=== PATIENT | female | born 1945 | race Caucasian/White ===

== ENCOUNTER 2016-05-25 14:23 | Inpatient (IN) | payer BC ==
[2016-05-25] VITALS (15 sets, daily range): BP systolic 98–158; RESP 14–20; TEMP 98.9–99.7; Ht 157.5 cm; Wt 41.5 kg
[~2016-05-25] VITALS: Ht 157.5 cm; Wt 41.5 kg
[2016-05-25] MEDS ORDERED: SUCCINYLCHOLINE 20 MG/ML VL ONE (14:26)
[2016-05-25] MEDS ORDERED: ETOMIDATE 2 MG/ML VIAL IV ONE (14:26)
[2016-05-25] MEDS ORDERED: FENTANYL 250 MCG/5 ML AMP ONE (14:41)
[2016-05-25] MEDS ORDERED: SODIUM CHLORIDE 0.9% 1,000 ML ONE ×2 (14:41→15:16)
[2016-05-25] MEDS ORDERED: FENTANYL DRIP 50 ML IV ONE (15:16)
[2016-05-25] MEDS: DUONEB INH SCH ×3 (15:55→23:00)
[2016-05-25] MEDS ORDERED: MAG HYDROX 30 ML UDC PO PRN (15:55)
[2016-05-25] MEDS ORDERED: ONDANSETRON 4 MG VIAL IV PRN (15:55)
[2016-05-25] MEDS ORDERED: SODIUM CHLORIDE 0.9% 1,000 ML IV SCH (15:55)
[2016-05-25] MEDS ORDERED: GLUCAGON 1 MG VIAL IM PRN (15:55)
[2016-05-25] MEDS ORDERED: ALU/MAG/SIM 30 ML UDC PO PRN (15:55)
[2016-05-25] MEDS ORDERED: DEXTROSE 50% SYRINGE 50 ML IV PRN (15:55)
[2016-05-25] MEDS: METHYLPRED SOD SUCC 125 MG/2 ML VIAL IV SCH (18:35)
[2016-05-25] MEDS: CEFTRIAXONE 1 GM in SODIUM CHLORIDE 0.9% 50 ML IV SCH (18:36)
[2016-05-25] MEDS: NEB-BUDESONIDE 0.5 MG INH SCH (19:23)
[2016-05-25] MEDS: NEB-BROVANA 15 MCG/2 ML INH SCH (19:24)
[2016-05-25] MEDS: ENOXAPARIN 40 MG/0.4 ML SYR SUBQ SCH (19:30)
[2016-05-25] MEDS: FAMOTIDINE 20 MG INJ IV SCH (19:31)
[2016-05-25] MEDS ORDERED: Flu Vaccine Quadrivalent 60 MCG/0.5 ML IM.VACC ONE (19:40)
[2016-05-25] MEDS ORDERED: LINEZOLID INJ IV ONE (22:05)
[2016-05-25] MEDS ORDERED: LINEZOLID INJ IV SCH (22:05)
[2016-05-26] VITALS (31 sets, daily range): BP systolic 83–165; RESP 15–22; TEMP 97.2–98.5
[2016-05-26] MEDS: CHLORHEXIDINE 0.12% ORAL CARE FOR VENT PATIENTS 15 ML SWAB SCH ×2 (01:07→12:00)
[2016-05-26] MEDS: METHYLPRED SOD SUCC 125 MG/2 ML VIAL IV SCH ×2 (01:07→07:31)
[2016-05-26] MEDS: LINEZOLID 600 MG/300 ML 300 ML IV SCH ×3 (01:19→19:53)
[2016-05-26] MEDS ORDERED: POTASSIUM CHLORIDE PREMIX 50 ML IV PRN (01:25)
[2016-05-26] MEDS ORDERED: DEXTROSE 5% SALINE 0.45% 1,000 ML IV SCH (01:25)
[2016-05-26] MEDS ORDERED: DEXTROSE 5% SALINE 0.9% 1,000 ML IV SCH (01:25)
[2016-05-26] MEDS ORDERED: SODIUM CHLOR 0.9% W/KCL 20MEQ 1,000 ML IV SCH (01:25)
[2016-05-26] MEDS ORDERED: D5-1/2-NS W/KCL 20MEQ/L 1,000 ML IV SCH (01:25)
[2016-05-26] MEDS ORDERED: D5-NS W/KCL 20MEQ/L 1,000 ML IV SCH (01:25)
[2016-05-26] MEDS ORDERED: SODIUM CHLORIDE 0.45% 1,000 ML IV SCH (01:25)
[2016-05-26] MEDS ORDERED: SODIUM CHLOR 0.45% W/KCL 20MEQ 1,000 ML IV SCH (01:25)
[2016-05-26] MEDS ORDERED: SODIUM CHLORIDE 0.9% 1,000 ML IV SCH (01:25)
[2016-05-26] MEDS ORDERED: DEXTROSE 5% 1,000 ML IV SCH (01:25)
[2016-05-26] MEDS ORDERED: D5 W/KCL 20MEQ/L 1,000 ML IV SCH (01:25)
[2016-05-26] MEDS: DUONEB INH SCH ×6 (02:55→22:53)
[2016-05-26] MEDS: NEB-BROVANA 15 MCG/2 ML INH SCH ×2 (06:59→19:03)
[2016-05-26] MEDS: NEB-BUDESONIDE 0.5 MG INH SCH ×2 (06:59→19:03)
[2016-05-26] MEDS: FAMOTIDINE 20 MG INJ IV SCH ×2 (07:31→19:52)
[2016-05-26] MEDS: CEFTRIAXONE 1 GM in SODIUM CHLORIDE 0.9% 50 ML IV SCH (10:12)
[2016-05-26] MEDS: ENOXAPARIN 40 MG/0.4 ML SYR SUBQ SCH (10:13)
[2016-05-26] MEDS: MAGNESIUM SULF 1 GM/100 ML 100 ML IV SCH ×4 (11:07→14:41)
[2016-05-26] MEDS: METHYLPRED SOD SUCC 40 MG VIAL IV SCH ×2 (12:26→17:47)
[2016-05-26] MEDS ORDERED: SALINE FLUSH 10 ML FLUSH PRN (12:30)
[2016-05-26] MEDS: SALINE FLUSH 10 ML FLUSH SCH (19:53)
[2016-05-27] VITALS (25 sets, daily range): BP systolic 120–177; RESP 14–22; TEMP 97.5–98
[2016-05-27] MEDS: METHYLPRED SOD SUCC 40 MG VIAL IV SCH ×5 (01:16→23:35)
[2016-05-27] MEDS: DUONEB INH SCH ×3 (02:39→11:12)
[2016-05-27] MEDS: NEB-BUDESONIDE 0.5 MG INH SCH ×2 (06:13→18:16)
[2016-05-27] MEDS: NEB-BROVANA 15 MCG/2 ML INH SCH ×2 (06:14→18:16)
[2016-05-27] MEDS: LINEZOLID 600 MG/300 ML 300 ML IV SCH ×2 (07:42→20:08)
[2016-05-27] MEDS: SALINE FLUSH 10 ML FLUSH SCH ×2 (07:42→20:09)
[2016-05-27] MEDS: FAMOTIDINE 20 MG INJ IV SCH (07:42)
[2016-05-27] MEDS: SODIUM CHLORIDE 0.9% FLUSH BAG 500 ML IV SCH (07:44)
[2016-05-27] MEDS: CEFTRIAXONE 1 GM in SODIUM CHLORIDE 0.9% 50 ML IV SCH (09:23)
[2016-05-27] MEDS: ENOXAPARIN 40 MG/0.4 ML SYR SUBQ SCH (09:23)
[2016-05-27] MEDS: NEB-ATROVENT INH SCH ×2 (15:03→18:16)
[2016-05-27] MEDS: NEB-XOPENEX 0.63 MG/3 ML INH SCH ×2 (15:03→18:16)
[2016-05-27] MEDS: MONTELUKAST 10 MG TAB PO SCH (20:08)
[2016-05-27] MEDS: DILTIAZEM 30 MG TAB PO SCH (20:08)
[2016-05-27] MEDS: GUAIFENESIN ER 600 MG TABCR PO SCH (20:08)
[2016-05-28] VITALS (25 sets, daily range): BP systolic 123–181; RESP 12–25; TEMP 97.7–98.4
[2016-05-28] MEDS: NEB-XOPENEX 0.63 MG/3 ML INH SCH ×7 (00:14→23:42)
[2016-05-28] MEDS: SODIUM CHLORIDE 0.9% FLUSH BAG 500 ML IV SCH (05:47)
[2016-05-28] MEDS: METHYLPRED SOD SUCC 40 MG VIAL IV SCH ×2 (05:56→12:08)
[2016-05-28] MEDS: PANTOPRAZOLE 40 MG TAB PO SCH (05:56)
[2016-05-28] MEDS: NEB-BUDESONIDE 0.5 MG INH SCH ×2 (06:06→19:50)
[2016-05-28] MEDS: MDI-SPIRIVA 5 DOSES INH SCH (06:07)
[2016-05-28] MEDS: SALINE FLUSH 10 ML FLUSH SCH ×2 (08:39→19:44)
[2016-05-28] MEDS: LINEZOLID 600 MG/300 ML 300 ML IV SCH ×2 (08:39→19:44)
[2016-05-28] MEDS: GUAIFENESIN ER 600 MG TABCR PO SCH ×2 (08:40→19:45)
[2016-05-28] MEDS: ENOXAPARIN 40 MG/0.4 ML SYR SUBQ SCH (08:40)
[2016-05-28] MEDS: CHOLECALCIFEROL 1,000 UNITS TAB PO SCH (08:40)
[2016-05-28] MEDS: DILTIAZEM 30 MG TAB PO SCH (08:40)
[2016-05-28] MEDS: NEB-BROVANA 15 MCG/2 ML INH SCH ×2 (10:56→19:50)
[2016-05-28] MEDS ORDERED: Furosemide 20 MG/2 ML VIAL IV ONE (11:15)
[2016-05-28] MEDS: DILTIAZEM 60 MG TAB PO SCH (19:44)
[2016-05-28] MEDS: MONTELUKAST 10 MG TAB PO SCH (19:45)
[2016-05-28] MEDS ORDERED: LISINOPRIL 10 MG TAB PO SCH (23:10)
[2016-05-28] MEDS: CILOSTAZOL 100 MG TAB PO SCH (23:34)
[2016-05-29] VITALS (8 sets, daily range): BP systolic 112–148; RESP 14–20; TEMP 97–98
[2016-05-29] MEDS: NEB-XOPENEX 0.63 MG/3 ML INH SCH ×6 (02:25→22:34)
[2016-05-29] MEDS: NEB-BROVANA 15 MCG/2 ML INH SCH ×2 (06:10→18:31)
[2016-05-29] MEDS: NEB-BUDESONIDE 0.5 MG INH SCH ×2 (06:10→18:31)
[2016-05-29] MEDS: MDI-SPIRIVA 5 DOSES INH SCH (06:11)
[2016-05-29] MEDS: PANTOPRAZOLE 40 MG TAB PO SCH (06:21)
[2016-05-29] MEDS: CILOSTAZOL 100 MG TAB PO SCH ×2 (06:21→17:32)
[2016-05-29] MEDS: SODIUM CHLORIDE 0.9% FLUSH BAG 500 ML IV SCH (06:22)
[2016-05-29] MEDS: ENOXAPARIN 40 MG/0.4 ML SYR SUBQ SCH (08:02)
[2016-05-29] MEDS: SALINE FLUSH 10 ML FLUSH SCH ×2 (08:02→19:40)
[2016-05-29] MEDS: PREDNISONE 20 MG TAB PO SCH (08:03)
[2016-05-29] MEDS: AZITHROMYCIN 250 MG TAB PO SCH (08:03)
[2016-05-29] MEDS: DILTIAZEM 60 MG TAB PO SCH ×3 (08:03→20:59)
[2016-05-29] MEDS: GUAIFENESIN ER 600 MG TABCR PO SCH ×2 (08:03→20:59)
[2016-05-29] MEDS: CHOLECALCIFEROL 1,000 UNITS TAB PO SCH (08:07)
[2016-05-29] MEDS ORDERED: MISSING DOSE XX ONE (08:20)
[2016-05-29] MEDS: LINEZOLID 600 MG/300 ML 300 ML IV SCH ×2 (10:31→19:41)
[2016-05-29] MEDS: MONTELUKAST 10 MG TAB PO SCH (20:59)
[2016-05-29] MEDS: LISINOPRIL 5 MG TAB PO SCH (20:59)
[2016-05-30] MEDS: NEB-XOPENEX 0.63 MG/3 ML INH SCH ×6 (02:40→22:19)
[2016-05-30 03:30] VITALS: BP_SYST 142; RESP 22; TEMP 97.7
[2016-05-30] MEDS: NEB-BROVANA 15 MCG/2 ML INH SCH ×2 (06:00→17:12)
[2016-05-30] MEDS: NEB-BUDESONIDE 0.5 MG INH SCH ×2 (06:00→17:12)
[2016-05-30] MEDS: MDI-SPIRIVA 5 DOSES INH SCH (06:01)
[2016-05-30] MEDS: PANTOPRAZOLE 40 MG TAB PO SCH (06:24)
[2016-05-30] MEDS: SODIUM CHLORIDE 0.9% FLUSH BAG 500 ML IV SCH (06:24)
[2016-05-30] MEDS: CILOSTAZOL 100 MG TAB PO SCH ×2 (06:25→17:26)
[2016-05-30 07:20] VITALS: BP_SYST 140; RESP 20; TEMP 97
[2016-05-30] MEDS: SALINE FLUSH 10 ML FLUSH SCH ×2 (07:56→20:31)
[2016-05-30] MEDS: LINEZOLID 600 MG/300 ML 300 ML IV SCH (07:56)
[2016-05-30] MEDS: DILTIAZEM 60 MG TAB PO SCH ×3 (08:00→20:32)
[2016-05-30] MEDS: GUAIFENESIN ER 600 MG TABCR PO SCH ×2 (08:00→20:31)
[2016-05-30] MEDS: ENOXAPARIN 40 MG/0.4 ML SYR SUBQ SCH (08:00)
[2016-05-30] MEDS: PREDNISONE 20 MG TAB PO SCH (08:00)
[2016-05-30] MEDS: AZITHROMYCIN 250 MG TAB PO SCH (08:00)
[2016-05-30] MEDS: CHOLECALCIFEROL 1,000 UNITS TAB PO SCH (08:00)
[2016-05-30 11:11] VITALS: BP_SYST 110; RESP 18; TEMP 98.1
[2016-05-30 15:17] VITALS: BP_SYST 132; RESP 18; TEMP 97.7
[2016-05-30 20:06] VITALS: BP_SYST 130; RESP 16; TEMP 96.9
[2016-05-30] MEDS: MONTELUKAST 10 MG TAB PO SCH (20:31)
[2016-05-30] MEDS: LISINOPRIL 5 MG TAB PO SCH (20:31)
[2016-05-30] MEDS: LINEZOLID 600 MG TAB PO SCH (20:32)
[2016-05-31] VITALS (7 sets, daily range): BP systolic 108–130; RESP 16–18; TEMP 96.9–98.1
[2016-05-31] MEDS: NEB-XOPENEX 0.63 MG/3 ML INH SCH ×6 (03:25→22:34)
[2016-05-31] MEDS: SODIUM CHLORIDE 0.9% FLUSH BAG 500 ML IV SCH (06:00)
[2016-05-31] MEDS: NEB-BUDESONIDE 0.5 MG INH SCH ×2 (06:28→18:44)
[2016-05-31] MEDS: MDI-SPIRIVA 5 DOSES INH SCH (06:29)
[2016-05-31] MEDS: NEB-BROVANA 15 MCG/2 ML INH SCH ×2 (06:29→18:44)
[2016-05-31] MEDS: CILOSTAZOL 100 MG TAB PO SCH ×2 (06:47→15:40)
[2016-05-31] MEDS: PANTOPRAZOLE 40 MG TAB PO SCH (06:47)
[2016-05-31] MEDS: SALINE FLUSH 10 ML FLUSH SCH ×2 (07:52→20:13)
[2016-05-31] MEDS: PREDNISONE 20 MG TAB PO SCH (07:53)
[2016-05-31] MEDS: CHOLECALCIFEROL 1,000 UNITS TAB PO SCH (07:53)
[2016-05-31] MEDS: LINEZOLID 600 MG TAB PO SCH ×2 (07:53→20:14)
[2016-05-31] MEDS: ENOXAPARIN 40 MG/0.4 ML SYR SUBQ SCH (07:53)
[2016-05-31] MEDS: AZITHROMYCIN 250 MG TAB PO SCH (07:54)
[2016-05-31] MEDS: DILTIAZEM 60 MG TAB PO SCH ×3 (07:54→20:14)
[2016-05-31] MEDS: GUAIFENESIN ER 600 MG TABCR PO SCH ×2 (07:54→20:15)
[2016-05-31] MEDS ORDERED: KCL CR 20 MEQ TAB PO ONE (10:35)
[2016-05-31] MEDS ORDERED: MISSING DOSE XX ONE (11:45)
[2016-05-31] MEDS: SACCHA BOULARDII 250MG CAP PO SCH ×2 (12:01→20:14)
[2016-05-31] MEDS: LORATADINE 10 MG TAB PO SCH (12:01)
[2016-05-31] MEDS: NYSTATIN 500,000 UNITS/5 ML SUSP SWISH.SWAL SCH ×4 (12:01→20:14)
[2016-05-31] MEDS: KCL CR 10 MEQ TAB PO SCH ×2 (15:41→20:14)
[2016-05-31] MEDS: LISINOPRIL 5 MG TAB PO SCH (20:14)
[2016-05-31] MEDS: MONTELUKAST 10 MG TAB PO SCH (20:16)
[2016-06-01 02:38] VITALS: BP_SYST 130; RESP 16; TEMP 97.3
[2016-06-01] MEDS: NEB-XOPENEX 0.63 MG/3 ML INH SCH ×6 (02:42→22:42)
[2016-06-01] MEDS: NEB-BROVANA 15 MCG/2 ML INH SCH ×2 (05:25→17:09)
[2016-06-01] MEDS: NEB-BUDESONIDE 0.5 MG INH SCH ×2 (05:26→17:10)
[2016-06-01] MEDS: MDI-SPIRIVA 5 DOSES INH SCH (05:54)
[2016-06-01] MEDS: SODIUM CHLORIDE 0.9% FLUSH BAG 500 ML IV SCH (05:56)
[2016-06-01] MEDS: PANTOPRAZOLE 40 MG TAB PO SCH (06:04)
[2016-06-01] MEDS: CILOSTAZOL 100 MG TAB PO SCH ×2 (06:04→15:35)
[2016-06-01] MEDS: LORATADINE 10 MG TAB PO SCH (07:49)
[2016-06-01] MEDS: NYSTATIN 500,000 UNITS/5 ML SUSP SWISH.SWAL SCH ×4 (07:49→20:00)
[2016-06-01] MEDS: AZITHROMYCIN 250 MG TAB PO SCH (07:49)
[2016-06-01] MEDS: DILTIAZEM 60 MG TAB PO SCH ×3 (07:49→20:00)
[2016-06-01] MEDS: SACCHA BOULARDII 250MG CAP PO SCH ×2 (07:50→20:00)
[2016-06-01] MEDS: GUAIFENESIN ER 600 MG TABCR PO SCH ×2 (07:50→20:00)
[2016-06-01] MEDS: LINEZOLID 600 MG TAB PO SCH ×2 (07:50→20:00)
[2016-06-01] MEDS: KCL CR 10 MEQ TAB PO SCH ×3 (07:51→20:00)
[2016-06-01] MEDS: CHOLECALCIFEROL 1,000 UNITS TAB PO SCH (07:51)
[2016-06-01] MEDS: PREDNISONE 20 MG TAB PO SCH ×2 (07:51→09:15)
[2016-06-01] MEDS: ENOXAPARIN 40 MG/0.4 ML SYR SUBQ SCH (07:52)
[2016-06-01] MEDS: SALINE FLUSH 10 ML FLUSH SCH ×2 (08:10→19:59)
[2016-06-01] MEDS ORDERED: MISSING DOSE XX ONE (08:15)
[2016-06-01 08:16] VITALS: BP_SYST 158; RESP 16; TEMP 97.9
[2016-06-01 11:42] VITALS: BP_SYST 130; RESP 16; TEMP 97.9
[2016-06-01 15:36] VITALS: BP_SYST 134; RESP 18; TEMP 97.8
[2016-06-01 19:11] VITALS: BP_SYST 132; RESP 16; TEMP 97.9
[2016-06-01] MEDS: LISINOPRIL 5 MG TAB PO SCH (20:00)
[2016-06-01] MEDS: MONTELUKAST 10 MG TAB PO SCH (20:00)
[2016-06-01 22:32] VITALS: BP_SYST 130; RESP 16; TEMP 96.9
[2016-06-02] MEDS: ACETAMINOPHEN 325 MG TAB PO PRN (01:47)
[2016-06-02] MEDS: NEB-XOPENEX 0.63 MG/3 ML INH SCH ×6 (02:41→22:28)
[2016-06-02 02:47] VITALS: BP_SYST 130; RESP 16; TEMP 97.5
[2016-06-02] MEDS: SODIUM CHLORIDE 0.9% FLUSH BAG 500 ML IV SCH (06:00)
[2016-06-02] MEDS ORDERED: MISSING DOSE XX ONE (06:10)
[2016-06-02] MEDS: PANTOPRAZOLE 40 MG TAB PO SCH (06:22)
[2016-06-02] MEDS: CILOSTAZOL 100 MG TAB PO SCH ×2 (06:22→15:56)
[2016-06-02] MEDS: NEB-BUDESONIDE 0.5 MG INH SCH ×2 (07:01→18:20)
[2016-06-02] MEDS: MDI-SPIRIVA 5 DOSES INH SCH (07:02)
[2016-06-02] MEDS: NEB-BROVANA 15 MCG/2 ML INH SCH ×2 (07:02→18:20)
[2016-06-02 07:49] VITALS: BP_SYST 140; RESP 18; TEMP 97.5
[2016-06-02] MEDS: GUAIFENESIN ER 600 MG TABCR PO SCH ×2 (08:47→20:33)
[2016-06-02] MEDS: SACCHA BOULARDII 250MG CAP PO SCH ×2 (08:47→20:33)
[2016-06-02] MEDS: AZITHROMYCIN 250 MG TAB PO SCH (08:47)
[2016-06-02] MEDS: LORATADINE 10 MG TAB PO SCH (08:47)
[2016-06-02] MEDS: CHOLECALCIFEROL 1,000 UNITS TAB PO SCH (08:47)
[2016-06-02] MEDS: DILTIAZEM 60 MG TAB PO SCH ×3 (08:47→20:34)
[2016-06-02] MEDS: NYSTATIN 500,000 UNITS/5 ML SUSP SWISH.SWAL SCH ×4 (08:48→20:33)
[2016-06-02] MEDS: PREDNISONE 20 MG TAB PO SCH (08:48)
[2016-06-02] MEDS: KCL CR 10 MEQ TAB PO SCH ×2 (08:48→15:57)
[2016-06-02] MEDS: ENOXAPARIN 40 MG/0.4 ML SYR SUBQ SCH (08:48)
[2016-06-02] MEDS: SALINE FLUSH 10 ML FLUSH SCH ×2 (08:57→20:33)
[2016-06-02 11:26] VITALS: BP_SYST 120; RESP 18; TEMP 97.9
[2016-06-02] MEDS: NEB-NACL 3% 4 ML NEBU INH SCH ×3 (14:10→22:28)
[2016-06-02 15:40] VITALS: BP_SYST 138; RESP 18; TEMP 98
[2016-06-02 19:55] VITALS: BP_SYST 118; RESP 18; TEMP 98.4
[2016-06-02] MEDS: LISINOPRIL 5 MG TAB PO SCH (20:33)
[2016-06-02] MEDS: MONTELUKAST 10 MG TAB PO SCH (20:33)
[2016-06-02 23:21] VITALS: BP_SYST 146; RESP 16; TEMP 97.3
[2016-06-03] MEDS: NEB-XOPENEX 0.63 MG/3 ML INH SCH ×6 (03:06→23:42)
[2016-06-03 03:33] VITALS: BP_SYST 124; RESP 16; TEMP 96.5
[2016-06-03] MEDS: SODIUM CHLORIDE 0.9% FLUSH BAG 500 ML IV SCH (06:06)
[2016-06-03] MEDS: PANTOPRAZOLE 40 MG TAB PO SCH (06:07)
[2016-06-03] MEDS: CILOSTAZOL 100 MG TAB PO SCH ×2 (06:07→17:47)
[2016-06-03] MEDS: NEB-NACL 3% 4 ML NEBU INH SCH ×4 (06:15→23:42)
[2016-06-03] MEDS: NEB-BUDESONIDE 0.5 MG INH SCH ×2 (06:15→19:42)
[2016-06-03] MEDS: NEB-BROVANA 15 MCG/2 ML INH SCH ×2 (06:15→19:42)
[2016-06-03] MEDS: MDI-SPIRIVA 5 DOSES INH SCH (06:19)
[2016-06-03 07:21] VITALS: BP_SYST 138; RESP 18; TEMP 96.8
[2016-06-03] MEDS: LORATADINE 10 MG TAB PO SCH (08:59)
[2016-06-03] MEDS: CHOLECALCIFEROL 1,000 UNITS TAB PO SCH (08:59)
[2016-06-03] MEDS: GUAIFENESIN ER 600 MG TABCR PO SCH ×2 (08:59→20:33)
[2016-06-03] MEDS: NEBIVOLOL 10 MG TAB PO SCH (08:59)
[2016-06-03] MEDS: SACCHA BOULARDII 250MG CAP PO SCH ×2 (08:59→20:33)
[2016-06-03] MEDS: PREDNISONE 20 MG TAB PO SCH (09:00)
[2016-06-03] MEDS: NYSTATIN 500,000 UNITS/5 ML SUSP SWISH.SWAL SCH ×4 (09:01→20:33)
[2016-06-03] MEDS: KCL CR 10 MEQ TAB PO SCH (09:01)
[2016-06-03] MEDS: SALINE FLUSH 10 ML FLUSH SCH ×2 (09:03→20:33)
[2016-06-03] MEDS: ENOXAPARIN 40 MG/0.4 ML SYR SUBQ SCH (09:03)
[2016-06-03 11:14] VITALS: BP_SYST 132; RESP 20; TEMP 97.5
[2016-06-03 14:53] VITALS: BP_SYST 130; RESP 18; TEMP 98.2
[2016-06-03] MEDS: AZITHROMYCIN 250 MG TAB PO SCH (17:46)
[2016-06-03 19:59] VITALS: BP_SYST 128; RESP 18; TEMP 97.7
[2016-06-03] MEDS: LINEZOLID 600 MG TAB PO SCH (20:33)
[2016-06-03] MEDS: MONTELUKAST 10 MG TAB PO SCH (20:33)
[2016-06-03] MEDS: LISINOPRIL 5 MG TAB PO SCH (20:33)
[2016-06-03 23:00] VITALS: BP_SYST 132; RESP 18; TEMP 97.3
[2016-06-04] MEDS: NEB-XOPENEX 0.63 MG/3 ML INH SCH ×6 (02:27→22:28)
[2016-06-04 04:11] VITALS: BP_SYST 134; RESP 18; TEMP 97.4
[2016-06-04] MEDS: SODIUM CHLORIDE 0.9% FLUSH BAG 500 ML IV SCH (05:05)
[2016-06-04] MEDS: PANTOPRAZOLE 40 MG TAB PO SCH (05:21)
[2016-06-04] MEDS: CILOSTAZOL 100 MG TAB PO SCH ×2 (05:21→15:30)
[2016-06-04] MEDS: NEB-BUDESONIDE 0.5 MG INH SCH ×2 (06:23→18:18)
[2016-06-04] MEDS: NEB-BROVANA 15 MCG/2 ML INH SCH ×2 (06:23→18:18)
[2016-06-04] MEDS: NEB-NACL 3% 4 ML NEBU INH SCH ×4 (06:23→22:28)
[2016-06-04 07:35] VITALS: BP_SYST 118; RESP 16; TEMP 97.3
[2016-06-04] MEDS: KCL CR 10 MEQ TAB PO SCH (08:35)
[2016-06-04] MEDS: CHOLECALCIFEROL 1,000 UNITS TAB PO SCH (08:35)
[2016-06-04] MEDS: SACCHA BOULARDII 250MG CAP PO SCH ×2 (08:35→19:54)
[2016-06-04] MEDS: GUAIFENESIN ER 600 MG TABCR PO SCH ×2 (08:35→19:54)
[2016-06-04] MEDS: LORATADINE 10 MG TAB PO SCH (08:35)
[2016-06-04] MEDS: NEBIVOLOL 10 MG TAB PO SCH (08:35)
[2016-06-04] MEDS: LINEZOLID 600 MG TAB PO SCH ×2 (08:35→19:54)
[2016-06-04] MEDS: AZITHROMYCIN 250 MG TAB PO SCH (08:36)
[2016-06-04] MEDS: PREDNISONE 20 MG TAB PO SCH (08:37)
[2016-06-04] MEDS: NYSTATIN 500,000 UNITS/5 ML SUSP SWISH.SWAL SCH ×4 (08:37→19:54)
[2016-06-04] MEDS: ENOXAPARIN 40 MG/0.4 ML SYR SUBQ SCH (08:38)
[2016-06-04] MEDS: SALINE FLUSH 10 ML FLUSH SCH ×2 (08:39→19:55)
[2016-06-04] MEDS: MDI-SPIRIVA 5 DOSES INH SCH (10:31)
[2016-06-04 11:27] VITALS: BP_SYST 118; RESP 18; TEMP 97.7
[2016-06-04 15:13] VITALS: BP_SYST 110; RESP 20; TEMP 97.9
[2016-06-04] MEDS: LISINOPRIL 5 MG TAB PO SCH (19:54)
[2016-06-04] MEDS: MONTELUKAST 10 MG TAB PO SCH (19:54)
[2016-06-04 20:02] VITALS: BP_SYST 116; RESP 20; TEMP 97.5
[2016-06-04] MEDS ORDERED: SODIUM CHLORIDE 0.9% 1,000 ML IV SCH (22:45)
[2016-06-04 23:38] VITALS: BP_SYST 93; RESP 20; TEMP 97.8
[2016-06-05] MEDS: NEB-XOPENEX 0.63 MG/3 ML INH SCH ×6 (02:36→22:32)
[2016-06-05 04:01] VITALS: BP_SYST 116; RESP 18; TEMP 96.5
[2016-06-05] MEDS: SODIUM CHLORIDE 0.9% FLUSH BAG 500 ML IV SCH (04:22)
[2016-06-05] MEDS: PANTOPRAZOLE 40 MG TAB PO SCH (06:03)
[2016-06-05] MEDS: CILOSTAZOL 100 MG TAB PO SCH ×2 (06:03→16:56)
[2016-06-05] MEDS: NEB-NACL 3% 4 ML NEBU INH SCH ×4 (06:30→22:32)
[2016-06-05] MEDS: NEB-BROVANA 15 MCG/2 ML INH SCH ×2 (06:30→18:35)
[2016-06-05] MEDS: NEB-BUDESONIDE 0.5 MG INH SCH ×2 (06:30→18:35)
[2016-06-05] MEDS: MDI-SPIRIVA 5 DOSES INH SCH (06:47)
[2016-06-05 07:51] VITALS: BP_SYST 130; RESP 18; TEMP 97.1
[2016-06-05] MEDS: SALINE FLUSH 10 ML FLUSH SCH ×2 (08:00→19:29)
[2016-06-05] MEDS: NYSTATIN 500,000 UNITS/5 ML SUSP SWISH.SWAL SCH ×4 (08:54→19:28)
[2016-06-05] MEDS: KCL CR 10 MEQ TAB PO SCH (08:55)
[2016-06-05] MEDS: CHOLECALCIFEROL 1,000 UNITS TAB PO SCH (08:56)
[2016-06-05] MEDS: SACCHA BOULARDII 250MG CAP PO SCH ×2 (08:56→19:28)
[2016-06-05] MEDS: NEBIVOLOL 10 MG TAB PO SCH (08:56)
[2016-06-05] MEDS: PREDNISONE 20 MG TAB PO SCH (08:56)
[2016-06-05] MEDS: LORATADINE 10 MG TAB PO SCH (08:56)
[2016-06-05] MEDS: AZITHROMYCIN 250 MG TAB PO SCH (08:56)
[2016-06-05] MEDS: GUAIFENESIN ER 600 MG TABCR PO SCH ×2 (08:57→19:28)
[2016-06-05] MEDS: LINEZOLID 600 MG TAB PO SCH ×2 (08:57→19:28)
[2016-06-05 11:40] VITALS: BP_SYST 130; RESP 18; TEMP 98.2
[2016-06-05 16:03] VITALS: BP_SYST 110; RESP 20; TEMP 98.4
[2016-06-05] MEDS: LISINOPRIL 5 MG TAB PO SCH (19:29)
[2016-06-05] MEDS: MONTELUKAST 10 MG TAB PO SCH (19:29)
[2016-06-05 19:42] VITALS: BP_SYST 122; TEMP 97.1
[2016-06-05] MEDS: ACETAMINOPHEN 325 MG TAB PO PRN (21:38)
[2016-06-06 00:16] VITALS: BP_SYST 100; RESP 16; TEMP 97.1
[2016-06-06] MEDS: NEB-XOPENEX 0.63 MG/3 ML INH SCH ×4 (02:26→14:30)
[2016-06-06] MEDS: SODIUM CHLORIDE 0.9% FLUSH BAG 500 ML IV SCH (04:01)
[2016-06-06 04:51] VITALS: BP_SYST 130; RESP 18; TEMP 97.2
[2016-06-06] MEDS: PANTOPRAZOLE 40 MG TAB PO SCH (05:51)
[2016-06-06] MEDS: CILOSTAZOL 100 MG TAB PO SCH ×2 (05:51→16:04)
[2016-06-06] MEDS: ACETAMINOPHEN 325 MG TAB PO PRN (05:53)
[2016-06-06] MEDS: NEB-BROVANA 15 MCG/2 ML INH SCH (06:24)
[2016-06-06] MEDS: NEB-NACL 3% 4 ML NEBU INH SCH ×2 (06:24→10:17)
[2016-06-06] MEDS: NEB-BUDESONIDE 0.5 MG INH SCH (06:24)
[2016-06-06] MEDS: MDI-SPIRIVA 5 DOSES INH SCH (06:24)
[2016-06-06 07:16] VITALS: BP_SYST 130; RESP 18; TEMP 97.6
[2016-06-06] MEDS: SALINE FLUSH 10 ML FLUSH SCH (08:33)
[2016-06-06] MEDS: CHOLECALCIFEROL 1,000 UNITS TAB PO SCH (08:33)
[2016-06-06] MEDS: LINEZOLID 600 MG TAB PO SCH (08:33)
[2016-06-06] MEDS: NEBIVOLOL 10 MG TAB PO SCH (08:33)
[2016-06-06] MEDS: LORATADINE 10 MG TAB PO SCH (08:33)
[2016-06-06] MEDS: AZITHROMYCIN 250 MG TAB PO SCH (08:34)
[2016-06-06] MEDS: SACCHA BOULARDII 250MG CAP PO SCH (08:34)
[2016-06-06] MEDS: NYSTATIN 500,000 UNITS/5 ML SUSP SWISH.SWAL SCH ×3 (08:34→16:04)
[2016-06-06] MEDS: KCL CR 10 MEQ TAB PO SCH (08:34)
[2016-06-06] MEDS: GUAIFENESIN ER 600 MG TABCR PO SCH (08:34)
[2016-06-06] MEDS: PREDNISONE 20 MG TAB PO SCH (08:34)
[2016-06-06 11:36] VITALS: BP_SYST 100; RESP 18; TEMP 97.9
[2016-06-06 14:54] VITALS: BP_SYST 132; RESP 18; TEMP 97.9
== END 2016-06-06 19:11 | disposition home health service (06) | DRG 208 ==
LOC: ENRESERVTM → ENRESERVDT → ER 14:23 → EMR 15:53 → ENPENDDIS 15:53 → ICU 17:55 → 4THE 05-29 01:08
PROVIDERS: ADMIT Internal Medicine; ATTEND Internal Medicine
PROC: 0BH17EZ Insertion of Endotracheal Airway into Trachea, Via Natural or Artificial Opening (ICD-10-PCS; principal; 2016-05-25)
PROC: 5A1935Z Respiratory Ventilation, Less than 24 Consecutive Hours (ICD-10-PCS; 2016-05-25)
CPT/HCPCS: 36600; 51702; 71010; 80048; 82803; 82947; 83735; 83880; 84439; 84443; 85025; 87077; 87186; 93005; 93306; 94002; 94003; 94640; 94660; 94667; 94668; 94799; 96360; 96361; 96365; 99232; 99233; 99291